=== PATIENT | male | born 1980 | race African-American/Black ===

== ENCOUNTER 2018-10-31 05:33 | Day surgery (SDC) | payer OTHER ==
[~2018-10-31] VITALS: Ht 170.2 cm; Wt 93.9 kg
[2018-10-31 07:45] VITALS: BP 127/74; Ht 170.2 cm; Wt 93.9 kg
--- NOTE | 2018-10-31 13:30 | NUR ---
1130 IV REMOVED AND PT MEDICATED FOR PAIN, VOIDED INSTRUCTIONS GIVEN
--- NOTE | 2018-11-01 17:32 | HP ---
PATIENT: RAEGAN BRODY MEDICAL RECORD: [id number] ACCOUNT: [id number] LOCATION:[facility] : 76 ADMISSION DATE: 10/31/18 PCP: No PCP HISTORY AND PHYSICAL EXAMINATION CHIEF COMPLAINT: Drainage. HISTORY OF PRESENT ILLNESS: The patient has had been having mucus as well as purulent drainage and bloody drainage from an area to the left of the anus. This is about 3-4 cm from the anal verge. This appears to be an anal fistula associated with a perianal abscess. We are going to plan for debridement of the perianal abscess as well as a possible fistulotomy. The risks, possible complications and alternatives to procedure were explained to the patient. He elects to proceed. The discussion specifically included, but was not limited to, bleeding requiring emergency reoperation, infection, fecal incontinence, and recurrence of the abscess. I saw the patient out at the [facility] unit in consultation. The patient thought that he had a recurrent pilonidal cyst. He does not have a pilonidal cyst that is recurrent. He says that there is a pilonidal cyst that is pressing on his discs and causing a discogenic pain. I told him that would be not something that could occur as pilonidal cysts are posterior and discs are anterior to the lamina. ALLERGIES: PENICILLIN, WHICH CAUSES ANAPHYLAXIS. IT APPEARS THAT HE HAS HAD RHEUMATIC FEVER IN THE PAST. PAST SURGICAL HISTORY: Rheumatic fever, hypertension, herpes simplex, gastroesophageal reflux, arthritis, knee surgery, oral surgery, pilonidal cystectomy. SOCIAL HISTORY: Ex-smoker. MEDICATIONS AT THE [facility]: None. PHYSICAL EXAMINATION: GENERAL: The patient does not appear acutely ill. He does not appear chronically ill. VITAL SIGNS: Reviewed. EARS: External ears appear normal. EYES: Extraocular movements are intact. NECK: Trachea is midline. CHEST: No intercostal retractions. PULMONARY: Nonlabored, no stridor. EXTREMITIES: No peripheral cyanosis. INTEGUMENT: No rash. ANAL: As described above. IMPRESSION: Probable anal fistulotomy with a perirectal abscess. PLAN: As described above. TRANSINT:[id number] Voice Confirmation ID: [id number] DOCUMENT ID: [id number] HISTORY AND PHYSICAL [id number] RAEGAN BRODY, SETH BRIZUELA at 1732 CC: RENARD DOUGLAS APN [id number] DICTATION DATE: 10/31/18 0808 [employer]ER [employer]: 10/31/18 09 [facility] 10/31/18 [id number] [place] [address]
--- NOTE | 2018-11-02 16:07 | OP ---
PATIENT NAME: RAEGAN BRODY MEDICAL RECORD: [id number] :76 [facility] DATE: SURGEON: SETH CÁRDENAS MD DATE OF OPERATION: 10/31/2018 PREOPERATIVE DIAGNOSIS: Perirectal abscess, rule out anal or rectal fistula. POSTOPERATIVE DIAGNOSIS: Perirectal abscess without evidence of anal or rectal fistula. PROCEDURES: Excisional debridement of perirectal abscess. Dimensions of debridement, including margins, measured 2.2 cm x 1.9 cm and included skin and subcutaneous tissue as well as the abscess cavity. SURGEON: Seth Cárdenas MD COLLECTIONS ATTORNEY: None. BLOOD LOSS: Minimal. ANESTHESIA: General. COMPLICATIONS: None. The risks, possible complications and alternatives to procedure were explained to the patient. He elects to proceed. The discussion specifically included, but was not limited to, bleeding requiring emergency reoperation, infection, sphincteric incompetence leading to fecal incontinence. OPERATIVE COURSE: The patient was conveyed to the operating room electively on 10/31/2018. General anesthesia was induced by the anesthesia staff. The patient was placed in the lithotomy position. The buttocks were taped laterally. The anus and perianal areas were sterilely prepped and draped. U-shaped anal retractors were placed. The abscess was located at 2 o'clock and was about 5 cm from the anal verge. Debridement was carried out sharply with a scalpel. I debrided back to healthy viable tissue. I then marsupialized the wound with a running locking 3-0 Vicryl Rapide suture. With the U-shaped anal retractors in the anus, I injected a combination of methylene blue and hydrogen peroxide into the debrided cavity. I did this several times. I noted no spillage of methylene blue or peroxide into the anus or rectum and therefore no evidence of an anal fistula. A combination of steriod preparation and Marcaine were used to infiltrate the perianal tissues. Gelfoam was applied within the anus and lower rectum. A topical anesthetic ointment was applied to the external hemorrhoids. A sterile dressing was applied. The patient was then extubated and conveyed to post-anesthesia care unit where he was in stable condition. He will be dismissed back to the detention on [facility] as well as [place]. There is no need for him to follow up with me in the office unless he develops a complication related to this operative procedure. The 3-0 Vicryl Rapide sutures are made to fall out in about 21 days. There is no need to cut the sutures out. The wound should heal by secondary intention. If the patient develops problems related to this operative procedure, I could see the OPERATIVE REPORT [id number] RAEGAN BRODY patient when I round out at the [facility]. TRANSINT:[id number] Voice Confirmation ID: [id number] DOCUMENT ID: [id number] SETH CÁRDENAS MD at 1607 CC: RENARD DOUGLAS APN [id number] DICTATION DATE: 10/31/18 1001 DRUG ENFORCEMENT AGENT: 10/31/18 1106 [facility] 10/31/18 [id number] [place] [address]
== END 2018-10-31 12:00 ==
LOC: D.OPS 05:33
PROVIDERS: ATTEND Surgery
DX: K61.1 Rectal abscess (principal); Z01.812 Encounter for preprocedural laboratory examination